=== PATIENT | male | born 1995 ===

== ENCOUNTER 2017-11-08 05:38 | Day surgery (SDC) | payer MEDICAID ==
[2017-11-08] MEDS ORDERED: ceFAZolin 2 GM/DEXTROSE 100 ML IV ONE (06:21)
[2017-11-08] MEDS ORDERED: LR 1,000 ML IV ONE (06:22)
--- NOTE | 2017-11-08 06:38 | PDHPUP ---
History & Physical Update H&P update statement: This history and physical update is based on an assessment of the patient which was completed after admission or registration (within 24 hours), but prior to the surgery/procedure. H&P update: H&P reviewed & patient examined, no change in patient's condition since H&P completed
[2017-11-08] MEDS ORDERED: BUPIVACAINE 0.5% 30 ML SDV ONE (06:42)
--- NOTE | 2017-11-08 07:05 | PDANEPAE ---
ANE Past Medical History - Cardiovascular History Hx Hypertension: No Hx Arrhythmias: No Hx Chest Pain: No Hx Coronary Artery / Peripheral Vascular Disease: No Hx CHF / Valvular Disease: No Hx Palpitations: No - Pulmonary History Hx COPD: No Hx Asthma/Reactive Airway Disease: No Hx Recent Upper Respiratory Infection: No Hx Oxygen in Use at Home: No Hx Sleep Apnea: No Sleep Apnea Screening Result - Last Documented: Negative - Neurologic History Hx Cerebrovascular Accident: No Hx Seizures: No Hx Dementia: No - Endocrine History Hx Diabetes: No - Renal History Hx Renal Disorders: No - Liver History Hx Hepatic Disorders: No - Neurological & Psychiatric Hx Hx Neurological and Psychiatric Disorders: No - Cancer History Hx Cancer: No - Congenital Disorder History Hx Congenital Disorders: No - GI History Hx Gastrointestinal Disorders: No - Other Health History Other Health History: Fungal infection on bilat forearms. Abcess on abdomen - Chronic Pain History Chronic Pain: No - Surgical History Prior Surgeries: gynecomastia surgery 08/2017 ANE Review of Systems Review of Systems: - Exercise capacity METS (RN): 4 METS ANE Patient History - Allergies Allergies/Adverse Reactions: No Known Allergies Allergy (Verified 11/07/17 14:19) - Home Medications Home Medications: No Home Meds, Supplements 11/07/17 [Last Taken 11/08/17] - NPO status NPO Since - Liquids (Date): 11/07/17 NPO Since - Liquids (Time): 18:00 NPO Since - Solids (Date): 11/07/17 NPO Since - Solids (Time): 18:00 - Smoking Hx Smoking Status: Never smoked - Family Anes Hx Family Hx Anesthesia Complications: none ANE Labs/Vital Signs - Vital Signs Blood Pressure: 119/67 Heart Rate: 72 Respiratory Rate: 18 O2 Sat (%): 96 Height: 177.8 cm Weight: 65.771 kg ANE Physical Exam - Airway Neck exam: FROM Mallampati Score: Class 1 Mouth exam: normal dental/mouth exam - Pulmonary Pulmonary: no respiratory distress - Cardiovascular Cardiovascular: regular rate and rhythym - ASA Status ASA Status: I ANE Anesthesia Plan Anesthesia Plan: GA w LMA
[2017-11-08] MEDS ORDERED: MIDAZOLAM 2 MG/2 ML VIAL ONE (07:09)
[2017-11-08] MEDS ORDERED: fentaNYL 100 MCG/2 ML INJ ONE (07:09)
[2017-11-08] MEDS ORDERED: LIDOCAINE 2% 100 MG/5 ML SYR ONE (07:10)
[2017-11-08] MEDS ORDERED: DEXAMETHASONE 4 MG/ML VIAL ONE ×2 (07:10)
[2017-11-08] MEDS ORDERED: PROPOFOL 200 MG/20 ML VIAL ONE (07:10)
[2017-11-08] MEDS ORDERED: METOCLOPRAMIDE 10 MG/2 ML VIAL ONE (07:10)
[2017-11-08] MEDS ORDERED: KETOROLAC 30 MG/1 ML SDV ONE (07:10)
[2017-11-08] MEDS ORDERED: fentaNYL 100 MCG/2 ML INJ IVP PRN (08:13)
[2017-11-08] MEDS ORDERED: ACETAMINOPHEN 500 MG TAB PO PRN (08:13)
[2017-11-08] MEDS ORDERED: HYDROCODONE/APAP 5/325 TAB PO PRN (08:13)
[2017-11-08] MEDS ORDERED: ONDANSETRON 4 MG/2 ML VIAL IVP PRN (08:13)
[2017-11-08] MEDS ORDERED: ALBUTEROL 3 ML DEYVIAL IH PRN (08:13)
[2017-11-08] MEDS ORDERED: NALOXONE HCL 0.4 MG/ML INJ IVP PRN (08:13)
[2017-11-08] MEDS ORDERED: oxyCODONE IR 5 MG TAB PO PRN (08:13)
--- NOTE | 2017-11-08 08:13 | POSTOPPROG ---
Post Op Note Date of Operation: 11/08/17 Surgeon: Charly Howard Anesthesiologist: Tu Anesthesia: GET(General Endotracheal) Pre-op Diagnosis: Umbilical abscess Post-op Diagnosis: same Procedure: Umbilical abscess washout and cystectomy Findings: small abscess at base of umbilicus, resected Inf/Abcess present in the surg proc area at time of surgery?: Yes Depth: Superfical (Skin SQ) EBL: Minimal Specimen(s): umbilical cyst
--- NOTE | 2017-11-08 08:20 | POSTANESTH ---
Post Anesthetic Evaluation Cardiovascular Status: Similar to Pre-Op Cond Respiratory Status: Similar to Pre-op Cond. Level of Consciousness/Mental Status: Mildly Sleepy, Arousable Pain Control: Adequate, Prn Tx Ordered Nausea/Vomiting Control: Adequate, Prn Tx Ordered Complications Possibly Related to Anesthesia: None Noted
[2017-11-08 09:10] VITALS: BP 96/51
--- NOTE | 2017-11-08 09:20 | GOP ---
DATE OF OPERATION: 11/08/2017 SURGEON: Chraly Howard MD REHABILITATION THERAPY TECHNICIAN: None. ANESTHESIA: General endotracheal. ANESTHESIOLOGIST: Shivam Mae MD PREOPERATIVE DIAGNOSIS: Umbilical abscess. POSTOPERATIVE DIAGNOSIS: Umbilical abscess. PROCEDURE PERFORMED: Umbilical washout with partial umbilectomy. FINDINGS: The patient's umbilicus probed quite deeply. At the deepest-most portion there were old hair and an abscess. I was able to resect this portion of the umbilicus and recreate it successfully. SPECIMENS: Umbilicus. ESTIMATED BLOOD LOSS: 5 cc. DESCRIPTION OF PROCEDURE: The patient was greeted in the preoperative suite. Once again, risks, benefits, and alternatives were discussed. Consent was signed. He was then brought back to the operative suite, placed on the OR table in supine position. After all anesthesia machines, including SCDs were on and functioning, a [employer] time-out was performed. After successful induction of general anesthesia, the patient's abdomen was prepped and draped in the typical sterile fashion. I commenced the procedure by probing and inspecting his umbilicus, which was quite deep. At the base of the umbilicus you could see granulation and what appeared to be an abscess cavity with old hair within it. I was then able to successfully clean this out from the outside. I then made a curvilinear incision inferior to the umbilicus. I carried this down to the subcutaneous tissue and successfully resected the umbilical stalk from the underlying fascia. Once brought up, I was able to digitally probe it. There was an abscess cavity at the deepest-most portion of the umbilicus. I then scored the inner portion of this and removed that portion of the abscess with the skin. It was then passed off and I inspected the area. I found no other abscess cavities or hair. I then recreated the inferior portion of the umbilical stalk using multiple interrupted 3-0 Vicryl stitches. Once this was done and cosmetically satisfactory, I then reapproximated the ronald-umbilical stalk to the underlying fascia. The umbilicus was now less deep and flatter to hopefully prevent issues in the future. I then turned my attention toward closing. I reapproximated the subcutaneous tissue with interrupted 3-0 Vicryl stitches and the skin with a running 4-0 Monocryl. Dermabond and a sterile dressing were then placed. The patient was then extubated in the operative suite and taken to the PACU in satisfactory condition. Local anesthesia consisting of 0.5% Marcaine was utilized throughout the procedure to create a field block. DRAINS: None. COUNTS: All counts were reported as correct x2. /[id number]/MODL MTDD
--- NOTE | 2017-11-14 07:40 | GCON ---
DATE OF CONSULTATION: 11/13/2017 CHIEF COMPLAINT: Bleeding from umbilical incision. HISTORY OF PRESENT ILLNESS: The patient is a 21-year-old who underwent umbilical washout with partia l umbilectomy by Dr. Howard on November 08, 2017. He was doing very well and noticed while he w as studying today that he had blood on his shirt. He reports he may have been a bit more vigorous th an recommended. He presented to the emergency room. PHYSICAL EXAMINATION: GENERAL: Pleasant, well-nourished, well-groomed man lying on gurney. He does have ecchymosis extending approximately 10 cm in each direction around his umbilicus. There is no s ign of infection. I cleansed the wound to remove old dried blood. It appeared as if there was excor iated skin by the incision. It was quite tender for him to have me clean it. IMPRESSION AND PLAN: Patient is a 21-year-old status post umbilical washout with partial umbilectomy . I recommend they place double antibiotic ointment and an Allevyn over the dressing. I counseled h im that if he has increasing redness, fevers, chills, questions, or concerns he should return to the office this week, otherwise, we can see him in the office next week. /[id number]/MODL
== END 2017-11-08 10:15 | disposition home or self-care (01) ==
LOC: FSGY 05:38
PROVIDERS: ATTEND Surgery
PROC: 0JB80ZZ Excision of Abdomen Subcutaneous Tissue and Fascia, Open Approach (ICD-10-PCS; principal; 2017-11-08 07:15)
DX: T81.4XXA Infection following a procedure, initial encounter (principal)
CPT/HCPCS: J0690; J1100; J1885; J2001; J2250; J2704; J2765; J3010

== ENCOUNTER 2017-11-13 19:18 | Emergency (ER) | payer MEDICAID ==
--- NOTE | 2017-11-13 20:05 | EDPHY ---
H & P Time Seen by Provider: 11/13/17 19:47 HPI/ROS: CHIEF COMPLAINT: Wound check, tender draining HISTORY OF PRESENT ILLNESS: 21-year-old immunocompetent male postop day 5 post umbilical abscess washout with umbilectomy by Dr. Howard in the ER stating that he has had drainage from the Dermabond site since this morning. Dr. Howard has not been made aware yet. No fever no chills. No nausea or vomiting. Localized tenderness only. No peritoneal sign. PRIMARY CARE PROVIDER: REVIEW OF SYSTEMS: 10 systems reviewed and are negative with exception of illness mentioned in the history of present illness PHYSICAL EXAM (Prior to examination, patient consented to physical exam, hands were washed and my usual and customary physical exam procedures followed) 1) GENERAL: Well-developed, well-nourished, alert and oriented. Appears to be in no acute distress. 2) HEAD: Normocephalic 3) HEENT: sclera anicteric 4) LUNGS: Breathing comfortably. 5) SKIN: Ecchymosis in the the inferior umbilical region with localized tenderness. Non purulent, non foul-smelling drainage noted. No dehiscence Smoking Status: Never smoked Constitutional: Initial Vital Signs Temperature (C) 36.8 C 11/13/17 19:31 Heart Rate 97 11/13/17 19:31 Respiratory Rate 16 11/13/17 19:31 Blood Pressure 118/70 11/13/17 19:31 O2 Sat (%) 97 11/13/17 19:31 O2 Delivery Mode Room Air Allergies/Adverse Reactions: No Known Allergies Allergy (Verified 11/13/17 19:34) Home Medications: Medication Instructions Recorded No Home Meds, Supplements 11/07/17 MDM/Departure - MDM ED Course/Re-evaluation: I reviewed the patient's old medical records. Will consult Dr. Tiffanie Jackson to evaluate patient's wound. I saw this patient independently based on established practice protocols. Care of patient under supervision of secondary supervising physician Dr Nieto with whom I discussed case. 8:30 p.m.: Consultation with Dr. Jackson who will evaluate the patient's wound 8:48 p.m.: Dr. Tiffanie Jackson has consulted, recommended bacitracin ointment, dressing, follow up in office later this week. - Depart Disposition: Home, Routine, Self-Care Clinical Impression: Visit for wound check Condition: Good Instructions: Wound Healing and Your Diet (ED) Referrals: Tiffanie Jackson MD [Medical Doctor] - As per Instructions
[2017-11-13 21:10] VITALS: BP 132/87
== END 2017-11-13 21:11 | disposition home or self-care (01) ==
DX: Z09 Encounter for follow-up examination after completed treatment for conditions other than malignant neoplasm (principal); L02.216 Cutaneous abscess of umbilicus